=== PATIENT | male | born 1995 | race Caucasian/White ===

== ENCOUNTER 2019-07-07 06:54 | Day surgery (SDC) | payer BC ==
[2019-07-07] MEDS ORDERED: Sodium Chloride 0.9% 1,000 ML IV SCH (07:15)
[2019-07-07] MEDS ORDERED: fentaNYL 100 MCG/2 ML SDV ONE (07:22)
[2019-07-07] MEDS ORDERED: Midazolam 1 MG/ML 2 ML SDV ONE (07:22)
[2019-07-07] MEDS ORDERED: Propofol 200 MG/20 ML SDV ONE ×2 (07:22→08:26)
--- NOTE | 2019-07-07 08:53 | PCM.PRGIL ---
Lower GI Endoscopy Procedure - Diagnosis (1) BRBPR (bright red blood per rectum) Current Visit: No Status: Acute SNOMED Code(s): 74962004 Procedure:: Reports: Colonoscopy Informed Consent Obtained?: Yes Indications:: Reports: Hematochezia Rectodigital Exam:: Reports: Normal Exam Sedation:: Reports: IV Depth Reached (Location):: Reports: Cecum Landmarks:: Reports: Cecum, Ileocecal Valve - Findings Rectal:: Reports: Normal Hemorrhoids:: Reports: None Condyloma:: Reports: None Colitis (Location):: Reports: None Polyps (location):: Reports: None Mass (Location):: Reports: None Previous Colon Surgery (Location):: Reports: None Stenosis (Location):: Reports: None Complications:: Reports: None Cultures:: Reports: None
== END 2019-07-07 10:20 | disposition home or self-care (01) ==
LOC: JP.SDS 06:54
PROVIDERS: ATTEND Hospitalist
DX: K92.1 Melena (principal)
CPT/HCPCS: 45378; J2250; J2704; J3010; J7030